=== PATIENT | male | born 1960 | race Two or more races ===

== ENCOUNTER 2022-12-24 09:57 | Emergency (ER) | payer MEDICAID ==
[~2022-12-24] VITALS: Ht 167.6 cm; Wt 63.6 kg
[2022-12-24 10:02] VITALS: BP 129/83
[2022-12-24] MEDS ORDERED: HYDROcodone/acetaminophen 5mg/325mg tablet PO ONE (10:55)
[2022-12-24] MEDS ORDERED: PRED20TA PO (11:04)
[2022-12-24] MEDS ORDERED: CEPH-585 PO (11:04)
[2022-12-24] MEDS ORDERED: PER5325T PO (11:04)
[2022-12-24] MEDS ORDERED: NALO4SPR BOTHNARES (11:06)
== END 2022-12-24 11:14 | disposition home or self-care (01) ==
LOC: ER 09:58
DX: M70.22 Olecranon bursitis, left elbow (principal); M25.522 Pain in left elbow; J44.9 Chronic obstructive pulmonary disease, unspecified; Y93.89 Activity, other specified
CPT/HCPCS: 73080; 99283; A4565

== ENCOUNTER 2023-08-06 23:17 | Emergency (ER) | payer MEDICAID ==
[~2023-08-06] VITALS: Ht 166.4 cm; Wt 65.0 kg
[~2023-08-06 23:17] MED LIST: NALO4SPR BOTHNARES
[2023-08-06 23:20] VITALS: TEMP 97.9
[2023-08-07] MEDS ORDERED: amox tr/potassium clavulanate 875/125mg TAB PO ONE (00:15)
[2023-08-07] MEDS ORDERED: ipratropium/albuterol 3ml nebule NEB ONE (00:15)
[2023-08-07] MEDS ORDERED: predniSONE 20 mg tablet PO ONE (00:15)
[2023-08-07 00:34] VITALS: PULSE 80; RESP 20; O2SAT 96
[2023-08-07 00:43] VITALS: PULSE 74; RESP 18; O2SAT 98
[2023-08-07] MEDS ORDERED: albuterol 2.5 MG/3 ML nebule NEB ONE (01:30)
[2023-08-07] MEDS ORDERED: normal saline 1000ml 1,000 ML IV ONE (01:30)
[2023-08-07] MEDS ORDERED: albuterol 2.5 MG/3 ML nebule CONTNEB PRN (01:45)
[2023-08-07 01:46] VITALS: PULSE 71; RESP 20; O2SAT 100
[2023-08-07 02:57] VITALS: PULSE 77; RESP 18; O2SAT 99
[2023-08-07] MEDS ORDERED: PRED20TA PO (03:56)
[2023-08-07] MEDS ORDERED: ALBU8HFA INH (03:57)
[2023-08-07] MEDS ORDERED: AMOX-580 PO (03:57)
[2023-08-07 04:05] VITALS: BP 117/78; PULSE 78; O2SAT 98
== END 2023-08-07 04:07 | disposition home or self-care (01) ==
LOC: ER 23:17
DX: J45.901 Unspecified asthma with (acute) exacerbation (principal); R05.8 Other specified cough; Z72.89 Other problems related to lifestyle; Z79.2 Long term (current) use of antibiotics; Z79.899 Other long term (current) drug therapy
CPT/HCPCS: 71045; 93005; 94640; 94644; 96360; 99285; J7030; J7512; 94760; A7015

== ENCOUNTER 2023-08-23 11:53 | Emergency (ER) | payer MEDICARE, MEDICAID ==
[~2023-08-23] VITALS: Ht 165.1 cm; Wt 61.0 kg
[~2023-08-23 11:53] MED LIST changes: +ALBU8HFA INH
[2023-08-23 12:20] VITALS: TEMP 98
[2023-08-23] MEDS ORDERED: ipratropium 0.5 MG/2.5ML nebule IH ONE (12:30)
[2023-08-23] MEDS ORDERED: albuterol 2.5 MG/3 ML nebule NEB ONE ×2 (12:30→13:15)
[2023-08-23 12:31] LABS: BASOPHILS % (AUTO) 0.4 % (0-1); EOSINOPHILS # (AUTO) 0.4 X10'3 (0-0.9); HEMOGLOBIN 14.4 g/dl (14.0-17.9); LYMPHOCYTES # (AUTO) 2.2 X10'3 (1.1-4.8); LYMPHOCYTES % (AUTO) 24.3 % (21-51); MEAN CORPUSCULAR HEMOGLOBIN 28.1 PG (27.0-31.0); MEAN CORPUSCULAR HGB CONC 32.8 g/dL (33.0-36.5); MEAN CORPUSCULAR VOLUME 85.9 FL (78-98); MEAN PLATELET VOLUME 7.3 FL (7.4-10.4); MONOCYTES % (AUTO) 10.6 % (2-12); NEUTROPHILS # (AUTO) 5.6 X10'3 (1.8-7.7); NEUTROPHILS % (AUTO) 60.7 % (42-75); PLATELET COUNT 327 X10'3 (140-440); RED BLOOD COUNT 5.12 X10'6 (4.70-6.10); RED CELL DISTRIBUTION WIDTH 15.1 % (11.5-14.5); WHITE BLOOD COUNT 9.2 X10'3 (4.5-11.0)
[2023-08-23 12:44] LABS: ALANINE AMINOTRANSFERASE 24 U/L (12-78); ALBUMIN 3.1 G/DL (3.4-5.0); ALBUMIN/GLOBULIN RATIO 0.8 (1.1-1.5); ALKALINE PHOSPHATASE 84 IU/L (46-116); ANION GAP 6 (8-16); ASPARTATE AMINO TRANSFERASE 21 U/L (10-37); BILIRUBIN,TOTAL 0.3 MG/DL (0.1-1.0); BLOOD UREA NITROGEN 24 MG/DL (7-18); BUN/CREATININE RATIO 28.2 (10.0-20.0); CALCIUM 8.8 MG/DL (8.5-10.1); CHLORIDE 107 MMOL/L (99-107); CREATININE 0.85 MG/DL (0.60-1.10); GLUCOSE 75 MG/DL (70-104); POTASSIUM 3.3 MMOL/L (3.5-5.1); SODIUM 142 MMOL/L (135-145); TOTAL PROTEIN 7.1 G/DL (6.4-8.2); eCRCL 75 ML/MIN; eGFR 90 ML/MIN
[2023-08-23 12:50] LABS: PRO BRAIN NATRIURETIC PEPTIDE 175 PG/ML (0-125)
[2023-08-23] MEDS ORDERED: dexamethasone sod phosphate 10mg/ml inj IM STA (13:11)
[2023-08-23] MEDS ORDERED: ALBU8HFA PO (13:16)
[2023-08-23] MEDS ORDERED: PRED20TA PO (13:16)
[2023-08-23] MEDS ORDERED: AZIT-164 PO (13:16)
[2023-08-23 13:35] VITALS: PULSE 47; RESP 16; O2SAT 95
[2023-08-23 13:47] VITALS: PULSE 65; RESP 18; O2SAT 100
[2023-08-23 14:06] VITALS: BP 114/76; PULSE 60; RESP 16; O2SAT 96
== END 2023-08-23 14:08 | disposition home or self-care (01) ==
LOC: ER 11:53
DX: J45.901 Unspecified asthma with (acute) exacerbation (principal); Z79.2 Long term (current) use of antibiotics; Z79.899 Other long term (current) drug therapy; R05.9 Cough, unspecified
CPT/HCPCS: 36415; 71045; 80053; 83880; 84484; 85025; 93005; 94640; 96372; 99285; J1100; 94760